=== PATIENT | male | born 1965 | race Caucasian/White ===

== ENCOUNTER 2016-12-16 08:17 | Day surgery (SDC) | payer OTHER ==
[2016-12-10 12:14] VITALS: BMI 33.9
[2016-12-16] MEDS ORDERED: PROPOFOL 20 ML ONE ×2 (08:30)
[2016-12-16 08:39] VITALS: TEMP 98.1
[2016-12-16 09:46] VITALS: BP 139/71; PULSE 58
== END 2016-12-16 09:55 | disposition home or self-care (01) ==
LOC: FASU-ENDO 08:17
PROVIDERS: ATTEND Internal Medicine Gastroenterology
PROC: 0DJD8ZZ Inspection of Lower Intestinal Tract, Via Natural or Artificial Opening Endoscopic (ICD-10-PCS; principal; 2016-12-16 08:55)
DX: Z12.11 Encounter for screening for malignant neoplasm of colon (principal); K57.30 Diverticulosis of large intestine without perforation or abscess without bleeding

== ENCOUNTER 2023-10-27 04:11 | Day surgery (SDC) | payer OTHER ==
[2023-10-23 09:41] VITALS: BMI 38.2
[2023-10-27] MEDS ORDERED: FENTANYL CITRATE/PF 50 MCG/ML VIAL ONE (13:04)
[2023-10-27] MEDS ORDERED: MIDAZOLAM HCL 2 MG/2 ML SINGLE DOSE VIAL ONE (13:04)
[2023-10-27 13:06] VITALS: BP 151/94; PULSE 57; RESP 17; TEMP 97.5
== END 2023-10-27 15:24 | disposition home or self-care (01) ==
LOC: JASU-SURG 04:11
PROVIDERS: ATTEND Urology
PROC: 0TF3XZZ Fragmentation in Right Kidney Pelvis, External Approach (ICD-10-PCS; principal; 2023-10-27 14:00)
DX: N20.0 Calculus of kidney (principal)